=== PATIENT | female | born 1950 | race Caucasian/White ===

== ENCOUNTER 2018-03-31 10:41 | Outpatient (CLI) | payer MEDICARE, MEDICAID ==
--- NOTE | 2018-03-31 12:31 | RAD ---
A 2 TO 3 LUMBAR SPINE SERIES: INDICATION: Low back pain. FINDINGS: There is no compression fracture or subluxation of the lumbar spine. Mild multilevel degenerative ch diallo is present. There is incidental note of atherosclerosis as well as multiple calcified pelvic ph leboliths. IMPRESSION: Degenerative change of the lumbar spine without acute compression fracture. POS: LES
== END 2018-03-31 10:42 | disposition home or self-care (01) ==
LOC: BICRAD 10:41
PROVIDERS: ATTEND Family Medicine
DX: M54.5 Low back pain (principal); G89.29 Other chronic pain; M47.896 Other spondylosis, lumbar region
CPT/HCPCS: 72100